=== PATIENT | male | born 1975 | race Caucasian/White ===

== ENCOUNTER 2022-09-20 19:48 | Emergency (ER) | payer BC, SELFPAY ==
[2022-09-20 19:55] VITALS: BP 166/108; PULSE 90; RESP 20; TEMP 36.7; O2SAT 94; BMI 28.0
--- NOTE | 2022-09-20 20:10 | ED_ITS ---
HPI - Abdominal Pain General: Chief Complaint: Abdominal Pain Stated Complaint: lower abdomen pain Time Seen by Provider: 09/20/22 20:03 Source: patient Mode of arrival: ambulatory Limitations: no limitations History of Present Illness: See nursing assessment. Patient with plaints of 4-day history of left flank pain that eventually radiated down to the left lower quadrant. Patient did have an episode of vomiting x1 on Friday. No nausea or vomiting today. Denies any dysuria or hematuria. Patient did have intermittent fever during the past few days but no fever today. Past medical history includes kidney stones, gallstones and sarcoidosis. Denies any other medical problems. Past surgical history includes right inguinal lymph node biopsy that diagnosed the sarcoidosis. Denies any other abdominal surgery. He still has his gallbladder. He takes no routine medications. Denies any al lergies to medications. Denies any rash. Associated Symptoms: Reports fever(s) (Intermittent. No fever today.) and nausea (Last episode was 2 days ago.); Denies chills, dysuria, hematochezia and hematuria Review of Systems Const: Reports: fever(s) (Intermittent. No fever today.); Denies: chills, fatigue or malaise Eyes: Denies: change in vision ENMT: Denies: throat pain Card: Denies: chest pain or palpitations Resp: Denies: dyspnea or wheezing GI: Reports: abdominal pain (Left flank and left lower quadrant abdominal pain) and nausea (Last episode was 2 days ago.); Denies: hematochezia : Reports: flank pain (Left flank pain.); Denies: difficulty urinating, dysuria, urinary frequency, urinary urgency, urinary hesitancy, hematuria or testicular pain Musc: Reports: back pain; Denies: neck pain Skin/Breast: Denies: rash, pruritus or erythema Neuro: Denies: headache(s) or numbness in extremities Psych: Denies: anxiety Gray/Lymph: Denies: enlarged lymph nodes PFSH ED Supplemental PFSH Information: See history above Physical Exam Const: COMMON NORMALS: no acute distress, patient oriented x3, no limitations and well nourished GENERAL APPEARANCE: cooperative HENMT: COMMON NORMALS: normocephalic and atraumatic HEAD & SCALP: normocephalic and atraumatic FACE & SINUS: normal facial exam Eye: COMMON NORMALS: EOMs intact bilaterally Neck/C-Spine: COMMON NORMALS: full ROM, no lymphadenopathy, supple and no m eningeal signs GENERAL: Yes normal visual inspection Lymph: LYMPHATIC: no lymphadenopathy noted Chest: COMMONS NORMALS: normal inspection of the chest and normal palpation of entire chest wall CHEST: No Ecchymosis present and No rash Resp: COMMON NORMALS: normal respiratory effort, No retractions and clear to auscultation bilaterally EFFORT & INSPECTION: No respiratory distress AUSCULTATION: clear to auscultation bilaterally Cardio: COMMON NORMALS: regular rate, regular rhythm and Peripheral pulses 2+ throughout JUGULAR VENOUS DISTENTION: no JVD RATE: regular rate RHYTHM: regular rhythm PERIPHERAL PULSES: Peripheral pulses 2+ throughout GI: COMMON NORMALS: Soft to palpation, No hepatosplenomegaly present, no masses and no bruits PALPATION: Yes Soft to palpation and Yes No hepa tosplenomegaly present OTHER: Normoactive bowel sounds. No bruits heard. Patient has mild left lower quadrant abdominal pain. : OTHER: Mild left flank pain. Back/Pelvis: OTHER: Mild left flank pain. No rash. Extremity: COMMON NORMALS: normal to inspection, full ROM and capillary refill normal Neuro: COMMON NORMALS: patient oriented x3, CN's II-XII intact bilaterally, no focal motor deficits and no sensory deficits noted MENINGEAL SIGNS: Yes no meningeal signs Psych: COMMON NORMALS: mental status grossly normal and Normal thought process present THOUGHT PROCESS: Normal thought process present Skin: COMMON NORMALS: no rashes or lesions noted and no wounds GENERAL SKIN EXAM: no rashes or lesions noted Course Vital Signs: Vital signs: Vital Signs Temperature 98.0 F 09/20/22 19:55 Pulse Rate 85 09/20/22 22:38 Respiratory Rate 18 09/20/22 22:38 Blood Pressure 125/75 09/20/22 22:38 Pulse Oximetry 97 09/20/22 22:38 Oxygen Delivery Me thod 09/20/22 22:38 MDM - Abdominal Pain Medical Decision Making Left flank and left lower quadrant abdominal pain. Likely renal colic. Possible diverticulitis Lab claire blood before nurse was able to get IV access. Patient declined IV access at that point. Lab Data 09/20/22 20:11 09/20/22 20:11 Labs/Radiology: Radiology Impressions Abdomen/Pelvis CT 09/20/22 21:33 IMPRESSION: 1. 5 mm obstructing stone proximal to mid left ureter with mild hydroureteronephrosis proximally. There is asymmetric adjacent periureteral stranding. Correlate with urinalysis for infection. 2. Gallstones. No evidence of acute cholecystitis. COMMENTS: Consistent with the [employer]'s Incidental Findings Committee white paper (J Am Gurdeep Radiol 2018): Any incidental renal lesion less than 1 cm or classified as too small to characterize, or any incidental cystic renal lesion characterized as simple-appearing, is likely benign. No follow-up imaging is recommended for these lesions per consensus recommendations based on imaging criteria. Laboratory Results WBC 16.1 10^3/uL (4.0-10.0) H 09/20/22 20:11 RBC 5.62 10^6/uL (4.1-5.3) H 09/20/22 20:11 Hgb 16.7 g/dL (11.7-16.6) H 09/20/22 20:11 Hct 49.9 % (42.0-52.0) 09/20/22 20:11 MCV 88.8 fl (80-94) 09/20/22 20:11 MCH 29.7 pg (28.0-34.0) 09/20/22 20:11 MCHC 33.5 g/dL (30.0-36.0) 09/20/22 20:11 RDW 12.2 % (12.1-15.1) 09/20/22 20:11 Plt Count 293 10^3/cmm (130-400) 09/20/22 20:11 MPV 10.5 fL (7.4-10.4) H 09/20/22 20:11 Neut % (Auto) 79.7 % 09/20/22 20:11 Lymph % (Auto) 5.9 % 09/20/22 20:11 [place] % (Auto) 12.1 % 09/20/22 20:11 Eos % (Auto) 1.4 % 09/20/22 20:11 Baso % (Auto) 0.5 % 09/20/22 20:11 Neut # (Auto) 12.80 10^3/uL (1.8-7.7) H 09/20/22 20:11 Lymph # (Auto) 1.0 10^3/uL (0.8-4.8) 09/20/22 20:11 [place] # (Auto) 2.0 10^3/uL (0.2-0.9) H 09/20/22 20:11 Eos # (Auto) 0.2 10^3/uL (0.0-0.8) 09/20/22 20:11 Baso # (Auto) 0.1 10^3/uL (0.0-0.1) 09/20/22 20:11 Nucleated RBC % (auto) 0 % 09/20/22 20:11 Nucleated RBCs # 0.0 /100WBC 09/20/22 20:11 Sodium 134 mmol/L (136-145) L 09/20/22 20:11 Potassium 3.6 mmol/L (3.5-5.1) 09/20/22 20:11 Chloride 94 mmol/L (98-107) L 09/20/22 20:11 Carbon Dioxide 27 mmol/L (22-29) 09/20/22 20:11 Anion Gap 16.6 (5-19) 09/20/22 20:11 BUN 16 mg/dL (6-20) 09/20/22 20:11 Creatinine 1.7 mg/dL (0.7-1.2) H 09/20/22 20:11 GFR Calculation 43.4 mL/min (90-130) L 09/20/22 20:11 Glucose 109 mg/dL (65-115) 09/20/22 20:11 Calculated Osmolality 280 mOsm/kg (285-295) L 09/20/22 20:11 Calcium 9.8 mg/dL (8.5-10.5) 09/20/22 20:11 Total Bilirubin 1.2 mg/dL (0.15-1.2) 09/20/22 20:11 AST 15 U/L (0-40) 09/20/22 20:11 ALT 25 U/L (0-41) 09/20/22 20:11 Alkaline Phosphatase 128 U/L (40-130) 09/20/22 20:11 Total Protein 8.6 g/dL (6.6-8.7) 09/20/22 20:11 Albumin 4.4 g/dL (3.5-5.2) 09/20/22 20:11 Globulin 4.2 g/dL (1.3-4.6) 09/20/22 20:11 Lipase 19 U/L (13-60) 09/20/22 20:11 Urine Color Yellow (Yellow) 09/20/22 20:30 Urine Appearance Clear (CLEAR) 09/20/22 20:30 Urine pH 5 (5-7) 09/20/22 20:30 Ur Specific [place] 1.015 (1.005-1.030) 09/20/22 20:30 Urine Protein Trace (Negative) 09/20/22 20:30 Urine Glucose (UA) Norm (Normal) 09/20/22 20:30 Urine Ketones 2+ (Negative) H 09/20/22 20:30 Urine Blood 2+ (Negative) H 09/20/22 20:30 Urine Nitrate Negative (Negative) 09/20/22 20:30 Urine Bilirubin Neg (Negative) 09/20/22 20:30 Urine Urobilinogen 1 mg/dL (Negative) H 09/20/22 20:30 Ur Leukocyte Esterase Trace (Negative) H 09/20/22 20:30 Urine RBC 5-10 /hpf (0-2) H 09/20/22 20:30 Urine WBC 0-4 /hpf (0-5) H 09/20/22 20:30 Ur Squamous Epith Cells 0-4 /hpf (0-5) H 09/20/22 20:30 Amorphous Sediment Not Reportable 09/20/22 20:30 Urine Bacteria Trace /hpf (NONE) 09/20/22 20:30 Urine Mucus Trace /hpf 09/20/22 20:[address] Abd/Pel: Radiologist's impression: PROCEDURE INFORMATION: Exam: CT Abdomen And Pelvis Without Contrast Exam date and time: 09/20/2022 9:42 PM Age: 47 years old Clinical indication: Abdominal pain; Flank; Left lower quadrant (llq); Prior surgery; Surgery date: 6+ months; Surgery type: Lymph nodes in groin removed. PT does not recall which side. Approx 20 yrs ago; Additional info: Flank pain left; Llq abd pain; Also constipation, likely renal colic on left; Creat 1.7; Wbc 16k; H/o TECHNIQUE: Imaging protocol: Computed tomography of the abdomen and pelvis without contrast. Radiation optimization: All CT scans at this facility use at least one of these dose optimization techniques: automated exposure control; mA and/or kV adjustment per patient size (includes targeted exams where dose is matched to clinical indication); or iterative reconstruction. COMPARISON: No relevant prior studies available. RADIATION DOSE METRICS: Total DLP (mGy-cm): 2151.24 FINDINGS: Liver: Normal. No mass. Gallbladder and bile ducts: Calcified gallstones in a contracted gallbladder. Pancreas: Normal. No ductal dilation. Spleen: Normal. No splenomegaly. Adrenal glands: Normal. No mass. Kidneys and ureters: Mild left-sided hydroureteronephrosis with obstructing stone measuring 5 mm in the proximal/mid left ureter . There is minimal adjacent asymmetric stranding adjacent to the left ureter. 7 mm hyperdensity lower pole right kidney, likely a protein/debris containing cysts. 2 mm nonobstructing right lower pole nephrolith.? Hypodensity anterior left renal midpole measuring 1 cm, likely a cyst, too small to characterize. Stomach and bowel: Unremarkable. No obstruction. No mucosal thickening. Appendix: No evidence of appendicitis. Intraperitoneal space: Unremarkable. No free air. No significant fluid collection. Vasculature: Unremarkable. No abdominal aortic aneurysm. Lymph nodes: Unremarkable. No enlarged lymph nodes. Urinary bladder: Unremarkable as visualized. Reproductive: Unremarkable as visualized. Bones/joints: Unremarkable. No acute fracture. Soft tissues: Unremarkable. Other findings: CT/CT kidney stone [id number] IMPRESSION: 1. 5 mm obstructing stone proximal to mid left ureter with mild hydroureteronephrosis proximally. There is asymmetric adjacent periureteral stranding. Correlate with urinalysis for infection. 2. Gallstones. No evidence of acute cholecystitis. ? COMMENTS: Consistent with the [employer]'s Incidental Findings Committee white paper (J Am Gurdeep Radiol 2018): Any incidental renal lesion less than 1 cm or classified as too small to characterize, or any incidental cystic renal lesion characterized as simple-appearing, is likely benign. No follow-up imaging is recommended for these lesions per consensus recommendations based on imaging criteria. ? Dictated By: Miles Delgado MD Signed By: Miles Delgado MD Signed Date/Time: 09/20/22 3324 Discharge Plan Discharge Patient Disposition: Home Clinical Impression: Acute left flank pain, Acute kidney injury, Calcium ureterolithiasis, Acute UTI (urinary tract infection) Abdominal pain Qualifiers: Abdominal location: left lower quadrant Qualified Code(s): R10.32 - Left lower quadrant pain Condition: Stable Prescriptions: New hydrocodone-acetaminophen 5-325 mg tablet 1 tab PO Q6H PRN (Reason: pain) Qty: 15 0RF Flomax 0.4 mg capsule 0.4 mg PO DAILY Qty: 10 1RF cephalexin 500 mg capsule 500 mg PO QID 5 Days Qty: 20 0RF Rx Instructions: for infection ondansetron 4 mg tablet,disintegrating 4 mg PO Q6H PRN (Reason: nausea and vomiting) Qty: 10 1RF Discharge Orders: Discharge ED (Routine); Ordered 09/20/22 Ordered By: Javi Crenshaw Referrals: Patel Biggs MD [Physician] - 4-7 days (for recheck of stone) Discharge Diet: Usual diet Discharge Activity: Increase activity as tolerated Patient Instructions: Acute Kidney Injury (DC), Kidney Stones (ED), Abdominal Pain (ED), Opioid Safety, Pain Management Activity Restrictions/Additional Instructions: You have approximately 5 mm diameter stone in the mid left ureter causing moderate obstruction. You have a slight infection in your urine. Drink plenty water. Take Flomax each evening prior to bedtime. May take stool softener as needed for constipation. Follow-up with family doctor or urologist next week if you have not passed stone. Findings of CT scan as below: FINDINGS: Liver: Normal. No mass. Gallbladder and bile ducts: Calcified gallstones in a contracted gallbladder. Pancreas: Normal. No ductal dilation. Spleen: Normal. No splenomegaly. Adrenal glands: Normal. No mass. Kidneys and ureters: Mild left-sided hydroureteronephrosis with obstructing stone measuring 5 mm in the proximal/mid left ureter . There is minimal adjacent asymmetric stranding adjacent to the left ureter. 7 mm hyperdensity lower pole right kidney, likely a protein/debris containing cysts. 2 mm nonobstructing right lower pole nephrolith.? Hypodensity anterior left renal midpole measuring 1 cm, likely a cyst, too small to characterize. Stomach and bowel: Unremarkable. No obstruction. No mucosal thickening. Appendix: No evidence of appendicitis. Intraperitoneal space: Unremarkable. No free air. No significant fluid collection. Vasculature: Unremarkable. No abdominal aortic aneurysm. Lymph nodes: Unremarkable. No enlarged lymph nodes. Urinary bladder: Unremarkable as visualized. Reproductive: Unremarkable as visualized. Bones/joints: Unremarkable. No acute fracture. Soft tissues: Unremarkable. Other findings: CT/CT kidney stone [id number] IMPRESSION: 1. 5 mm obstructing stone proximal to mid left ureter with mild hydroureteronephrosis proximally. There is asymmetric adjacent periureteral stranding. Correlate with urinalysis for infection. 2. Gallstones. No evidence of acute cholecystitis. Coding Level of Care Code ED Fitness Supervisor for Chg Fwd History Comprehensive Exam Comprehensive Medical Decision Making Moderate Complexity
[2022-09-20 20:15] LABS: Basophils # 0.1 10^3/uL (0.0-0.1); Basophils % 0.5 %; Eosinophils # 0.2 10^3/uL (0.0-0.8); Eosinophils % 1.4 %; Hematocrit 49.9 % (42.0-52.0); Hemoglobin 16.7 g/dL (11.7-16.6); Lymphocytes % 5.9 %; Mean Corpuscular HGB Conc 33.5 g/dL (30.0-36.0); Mean Corpuscular Hemoglobin 29.7 pg (28.0-34.0); Mean Corpuscular Volume 88.8 fl (80-94); Mean Platelet Volume 10.5 fL (7.4-10.4); Monocytes % 12.1 %; Neutrophils % 79.7 %; Nucleated Red Blood Cells % 0 %; Platelet Count 293 10^3/cmm (130-400); Red Blood Count 5.62 10^6/uL (4.1-5.3); Red Cell Distribution Width 12.2 % (12.1-15.1); White Blood Count 16.1 10^3/uL (4.0-10.0)
--- NOTE | 2022-09-20 20:32 | PC.NURSE ---
Blood was drawn prior to pt coming back to room. Pt refusing IV at this time. Physician aware
[2022-09-20 21:02] LABS: Urine Appearance Clear (CLEAR); Urine Color Yellow (Yellow)
[2022-09-20 21:03] LABS: Bilirubin Urine Neg (Negative); Blood Urine 2+ (Negative); Glucose Urine UA Norm (Normal); Ketones Urine 2+ (Negative); Leukocyte Esterase Urine Trace (Negative); Nitrate Urine Negative (Negative); Protein Urine Trace (Negative); Specific Gravity, Urine 1.015 (1.005-1.030); Urobilinogen Urine 1 mg/dL (Negative); pH Urine 5 (5-7)
[2022-09-20 21:08] LABS: Alanine Aminotransferase 25 U/L (0-41); Albumin Level 4.4 g/dL (3.5-5.2); Alkaline Phosphatase 128 U/L (40-130); Anion Gap 16.6 (5-19); Aspartate Amino Transferase 15 U/L (0-40); Blood Urea Nitrogen 16 mg/dL (6-20); Calcium 9.8 mg/dL (8.5-10.5); Carbon Dioxide 27 mmol/L (22-29); Chloride 94 mmol/L (98-107); Globulin 4.2 g/dL (1.3-4.6); Glomerular Filtration Rate 43.4 mL/min (90-130); Glucose 109 mg/dL (65-115); Lipase 19 U/L (13-60); Osmolality Calculated 280 mOsm/kg (285-295); Potassium 3.6 mmol/L (3.5-5.1); Sodium 134 mmol/L (136-145); Total Bilirubin 1.2 mg/dL (0.15-1.2); Total Protein 8.6 g/dL (6.6-8.7)
[2022-09-20 21:10] LABS: Squamous Epithelial Cell Urine 0-4 /hpf (0-5); WBC Urine 0-4 /hpf (0-5)
[2022-09-20 21:11] LABS: Add Urine Culture? No; Bacteria Urine TRACE /hpf; Mucus Urine TRACE /hpf
--- NOTE | 2022-09-20 21:33 | CTR_ITS ---
PROCEDURE INFORMATION: Exam: CT Abdomen And Pelvis Without Contrast Exam date and time: 09/20/2022 9:42 PM Age: 47 years old Clinical indication: Abdominal pain; Flank; Left lower quadrant (llq); Prior surgery; Surgery date: 6+ months; Surgery type: Lymph nodes in groin removed. PT does not recall which side. Approx 20 yrs ago; Additional info: Flank pain left; Llq abd pain; Also constipation, likely renal colic on left; Creat 1.7; Wbc 16k; H/o TECHNIQUE: Imaging protocol: Computed tomography of the abdomen and pelvis without contrast. Radiation optimization: All CT scans at this facility use at least one of these dose optimization techniques: automated exposure control; mA and/or kV adjustment per patient size (includes targeted exams where dose is matched to clinical indication); or iterative reconstruction. COMPARISON: No relevant prior studies available. RADIATION DOSE METRICS: Total DLP (mGy-cm): 2151.24 FINDINGS: Liver: Normal. No mass. Gallbladder and bile ducts: Calcified gallstones in a contracted gallbladder. Pancreas: Normal. No ductal dilation. Spleen: Normal. No splenomegaly. Adrenal glands: Normal. No mass. Kidneys and ureters: Mild left-sided hydroureteronephrosis with obstructing stone measuring 5 mm in the proximal/mid left ureter . There is minimal adjacent asymmetric stranding adjacent to the left ureter. 7 mm hyperdensity lower pole right kidney, likely a protein/debris containing cysts. 2 mm nonobstructing right lower pole nephrolith. Hypodensity anterior left renal midpole measuring 1 cm, likely a cyst, too small to characterize. Stomach and bowel: Unremarkable. No obstruction. No mucosal thickening. Appendix: No evidence of appendicitis. Intraperitoneal space: Unremarkable. No free air. No significant fluid collection. Vasculature: Unremarkable. No abdominal aortic aneurysm. Lymph nodes: Unremarkable. No enlarged lymph nodes. Urinary bladder: Unremarkable as visualized. Reproductive: Unremarkable as visualized. Bones/joints: Unremarkable. No acute fracture. Soft tissues: Unremarkable. Other findings: CT/CT kidney stone [id number] IMPRESSION: 1. 5 mm obstructing stone proximal to mid left ureter with mild hydroureteronephrosis proximally. There is asymmetric adjacent periureteral stranding. Correlate with urinalysis for infection. 2. Gallstones. No evidence of acute cholecystitis. COMMENTS: Consistent with the [employer] [place] [employer]'s Incidental Findings Committee white paper (J Am Gurdeep Radiol 2018): Any incidental renal lesion less than 1 cm or classified as too small to characterize, or any incidental cystic renal lesion characterized as simple-appearing, is likely benign. No follow-up imaging is recommended for these lesions per consensus recommendations based on imaging criteria.
[2022-09-20 22:38] VITALS: BP 125/75; PULSE 85; RESP 18; O2SAT 97
[2022-09-20] MEDS: tamsulosin 0.4 mg Capsule PO (22:52)
[2022-09-20] MEDS: lidocaine 1% INJ 10 mL (per mL) 2.1 ML INJECTION (22:53)
[2022-09-20] MEDS: cefTRIAXone 1,000 mg SDV 1000 MG IM (22:53)
== END 2022-09-20 23:21 | disposition home or self-care (01) ==
PROVIDERS: Emergency Medicine; Emergency Provider Family Medicine
DX: N39.0 Urinary tract infection, site not specified (principal); N20.1 Calculus of ureter; N17.9 Acute kidney failure, unspecified
CPT/HCPCS: 36415; 74176; 80053; 81001; 83690; 85025; 96372; 99285; J0696